=== PATIENT | female | born 1940 | race Caucasian/White ===

== ENCOUNTER 2016-10-17 14:25 | Outpatient (CLI) | payer MEDICARE ==
[2016-10-17 15:01] LABS: CALCIUM 9.4 mg/dL (8.5-10.3); CREATININE 0.8 mg/dL (0.4-1.0); POTASSIUM 4.6 mmol/L (3.5-5.0)
== END 2016-10-17 14:26 | disposition home or self-care (01) ==
LOC: LAB 14:25
PROVIDERS: ATTEND Internal Medicine Cardiovascular Disease
DX: Z01.818 Encounter for other preprocedural examination (principal); I10 Essential (primary) hypertension
CPT/HCPCS: 36415; 80069; 85025

== ENCOUNTER 2017-02-13 08:00 | Outpatient (CLI) | payer MEDICARE ==
[2017-02-13 19:40] LABS: CALCIUM 9.4 mg/dL (8.5-10.3); CREATININE 0.9 mg/dL (0.4-1.0); POTASSIUM 4.1 mmol/L (3.5-5.0)
== END 2017-02-13 08:01 | disposition home or self-care (01) ==
LOC: LAB.N 08:00
PROVIDERS: ATTEND Surgery
DX: Z98.890 Other specified postprocedural states (principal)
CPT/HCPCS: 36415; 80048

== ENCOUNTER 2017-04-25 09:31 | Outpatient (CLI) | payer MEDICARE ==
[2017-04-25 20:17] LABS: CHOL/HDL RATIO 3.2 (<4.4); CHOLESTEROL 139 mg/dL; HDL CHOLESTEROL 44 mg/dL; LDL/HDL RATIO 1.6 (<4.4); TRIGLYCERIDES 113 mg/dL; VLDL CHOLESTEROL 23 mg/dL
[2017-04-25 20:24] LABS: THYROID STIMULATING HORMONE 7.8 uIU/mL (0.34-5.60)
== END 2017-04-25 09:32 | disposition home or self-care (01) ==
LOC: LAB.R 09:31
PROVIDERS: ATTEND Nurse Practitioner Primary Care
DX: E55.9 Vitamin D deficiency, unspecified (principal); D64.9 Anemia, unspecified; E03.9 Hypothyroidism, unspecified; E78.5 Hyperlipidemia, unspecified
CPT/HCPCS: 80061; 82306; 82607; 82728; 84443

== ENCOUNTER 2017-11-21 14:32 | Outpatient (CLI) | payer MEDICARE ==
--- NOTE | 2017-11-21 15:34 | XRAY Report ---
Procedure Date: 11/21/2017 Accession Number: [id number] / [id number] Procedure: XR - Shoulder 2 View LT CPT Code: FULL RESULT: EXAM: Shoulder 2 View LT DATE: 11/21/2017 2:45 PM CLINICAL HISTORY: OSTEOARTHRITIS,SHOULDER LT,IMPINGEMENT SYNDROME OF COMPARISON: None. TECHNIQUE: 2 views. FINDINGS: Bones: Normal. No fracture or bone lesion. Joints: Severe osteoarthritis of the glenohumeral joint. Mild degenerative changes of the acromioclavicular joint. Soft tissues: The visualized hemithorax is unremarkable. No soft tissue swelling. IMPRESSION: Severe glenohumeral osteoarthritis. RADIA
== END 2017-11-21 14:33 | disposition home or self-care (01) ==
LOC: DI 14:32
PROVIDERS: ATTEND Nurse Practitioner Primary Care
DX: M19.012 Primary osteoarthritis, left shoulder (principal)

== ENCOUNTER 2018-09-10 08:00 | Outpatient (CLI) | payer MEDICARE ==
[2018-09-10 19:35] LABS: HGB - HEMOGLOBIN 13.2 g/dL (12.0-16.0); MEAN CORPUSCULAR HEMOGLOBIN 29.3 pg (27.0-31.0); MEAN CORPUSCULAR HGB CONC 32.7 g/dL (32.0-36.0); MEAN CORPUSCULAR VOLUME 89.6 fL (81.0-99.0); RED BLOOD COUNT 4.49 10^6/uL (4.20-5.40); RED CELL DISTRIBUTION WIDTH 15.3 % (12.0-15.0); WHITE BLOOD COUNT 6.3 x10^3/uL (4.8-10.8)
[2018-09-10 19:51] LABS: ALBUMIN 3.5 g/dL (3.2-5.5); ALKALINE PHOSPHATASE 97 IU/L (42-121); ALT ALANINE AMINOTRANSFERASE 22 IU/L (10-60); AST ASPARTATE AMINOTRANSFERASE 19 IU/L (10-42); BILIRUBIN,TOTAL 0.7 mg/dL (0.2-1.0); BUN - BLOOD UREA NITROGEN 21 mg/dL (6-20); CALCIUM 9.2 mg/dL (8.5-10.3); CARBON DIOXIDE - CO2 28 mmol/L (21-32); CHLORIDE 100 mmol/L (101-111); CHOL/HDL RATIO 3.8 (<4.4); CHOLESTEROL 136 mg/dL; CREATININE 0.8 mg/dL (0.4-1.0); GFR - MDRD 69 (>89); GLUCOSE 96 mg/dL (70-100); HDL CHOLESTEROL 36 mg/dL; LDL CHOLESTEROL,CALCULATED 77 mg/dL; LDL/HDL RATIO 2.1 (<4.4); SODIUM 138 mmol/L (135-145); TOTAL PROTEIN 6.9 g/dL (6.7-8.2); VLDL CHOLESTEROL 23 mg/dL
== END 2018-09-10 23:59 | disposition home or self-care (01) ==
LOC: LAB.N 08:00
PROVIDERS: ATTEND Internal Medicine
DX: E78.5 Hyperlipidemia, unspecified (principal); E03.9 Hypothyroidism, unspecified
CPT/HCPCS: 36415; 80053; 80061; 83721; 84443; 85027

== ENCOUNTER 2018-10-24 11:57 | Outpatient (CLI) | payer MEDICARE ==
[2018-10-24] MEDS ORDERED: IOVERSOL 320 50 ML VIAL ONE (13:11)
[2018-10-24] MEDS ORDERED: IOVERSOL 320 100 ML VIAL IVP ONE ×2 (13:11→17:56)
--- NOTE | 2018-10-24 14:41 | CT Report ---
Reason: OTHER MALIGNANT NEUROENDOCRINE TUMORS Procedure Date: 10/24/2018 Accession Number: [id number] / [id number] Procedure: CT - CHEST W CPT Code: FULL RESULT: EXAM: CT CHEST EXAM DATE: 10/24/2018 02:12 PM. CLINICAL HISTORY: Restaging jejunal neuroendocrine cancer. COMPARISONS: CHEST/ABDOMEN/PELVIS W/ 02/22/2018 10:25 AM TECHNIQUE: Routine helical CT imaging was performed through the chest. IV contrast: None. Reconstructions: Coronal and sagittal. In accordance with CT protocol optimization, one or more of the following dose reduction techniques were utilized for this exam: automated exposure control, adjustment of mA and/or KV based on patient size, or use of iterative reconstructive technique. FINDINGS: Lungs/Pleura: Redemonstration of multiple tiny peripheral right lung nodules. All nodules appear to be slightly decreased in size compared to 02/22/2018, including a dominant lateral segment right middle lobe nodule that measures 4 mm maximal diameter (previous 5 mm diameter). No new lesions. Mediastinum: Redemonstration of wide aperture large hiatus hernia that also includes a small portion of nonobstructed mid ascending colon. No adenopathy or masses. The heart and great vessels are normal. Bones: Unremarkable. Visualized Abdomen: Unremarkable. Other: None. IMPRESSION: 1. Interval decrease in size of many of the tiny peripheral primarily right lung pulmonary nodules. No new lesions. 2. Redemonstration of large sliding-type hiatus hernia which also contains a loop of nonobstructed mid ascending colon. 3. Otherwise negative examination. RADIA
--- NOTE | 2018-10-24 14:46 | CT Report ---
Reason: OTHER MALIGNANT NEUROENDOCRINE TUMORS Procedure Date: 10/24/2018 Accession Number: [id number] / [id number] Procedure: CT - Abdomen/Pelvis W CPT Code: FULL RESULT: EXAM: CT ABDOMEN AND PELVIS EXAM DATE: 10/24/2018 02:12 PM. CLINICAL HISTORY: OTHER MALIGNANT NEUROENDOCRINE TUMORS. COMPARISONS: ABDOMEN/PELVIS W/ 02/22/2018 10:25 AM. TECHNIQUE: Routine helical CT imaging was performed through the abdomen and pelvis. IV contrast: . Enteric contrast: No. Reconstructions: Coronal and sagittal. In accordance with CT protocol optimization, one or more of the following dose reduction techniques were utilized for this exam: automated exposure control, adjustment of mA and/or KV based on patient size, or use of iterative reconstructive technique. FINDINGS: Lung Bases: Redemonstration of large sliding-type hiatus hernia which also contains small loop of nonobstructed mid ascending colon Liver: No suspicious lesions. 2 benign-appearing left lobe cysts are again noted, the largest of which measures approximately 4 cm diameter. Gallbladder/Bile Ducts: Unremarkable. Spleen: Normal. Pancreas: Normal. Adrenal Glands: Normal. Kidneys: Normal. No masses or hydronephrosis. Peritoneal Cavity/Bowel: Normal. No free fluid, free air or adenopathy. No masses or acute inflammatory process. The appendix is well visualized and normal. Pelvic Organs: Normal. The bladder and visualized pelvic organs are within normal limits. Vasculature: No aneurysms or other significant abnormality. Bones: No suspicious lesion. Left hip arthroplasty is present and causes beam hardening artifact obscuring the base of pelvis. Other: None. IMPRESSION: No evidence of metastatic disease and no significant change compared to prior examination. RADIA
[2018-10-24] MEDS ORDERED: IOVERSOL 320 50 ML VIAL PO ONE (17:56)
== END 2018-10-24 11:58 | disposition home or self-care (01) ==
LOC: DI 11:57
PROVIDERS: ATTEND Internal Medicine
DX: C7A.8 Other malignant neuroendocrine tumors (principal); R91.8 Other nonspecific abnormal finding of lung field; K44.9 Diaphragmatic hernia without obstruction or gangrene
CPT/HCPCS: 71260; 74177; Q9967

== ENCOUNTER 2018-11-05 08:00 | Outpatient (CLI) | payer MEDICARE ==
[2018-11-05 18:39] LABS: ALBUMIN 3.6 g/dL (3.2-5.5); CALCIUM 9.3 mg/dL (8.5-10.3); CREATININE 0.9 mg/dL (0.4-1.0); PHOSPHORUS 4.3 mg/dL (2.5-4.6)
== END 2018-11-05 08:01 | disposition home or self-care (01) ==
LOC: LAB.N 08:00
PROVIDERS: ATTEND Internal Medicine Cardiovascular Disease
DX: E78.5 Hyperlipidemia, unspecified (principal); R06.02 Shortness of breath; I10 Essential (primary) hypertension
CPT/HCPCS: 36415; 80069

== ENCOUNTER 2018-12-27 07:38 | Outpatient (CLI) | payer MEDICARE ==
--- NOTE | 2018-12-30 11:03 | Mammography Report ---
Reason: SCREENING MAMMOGRAM Procedure Date: 12/27/2018 Accession Number: [id number] / [id number] Procedure: PATT - Screening Mammo w/Gaston CPT Code: FULL RESULT: EXAM: Screening Mammo w/Gaston DATE: 12/27/2018 8:15 AM CLINICAL HISTORY: Routine screening. No reported personal history or family history of breast cancer. Personal history of colon cancer. TECHNIQUE: (B) - Bilateral CC and MLO views were obtained. COMPARISON: 02/21/2016 PARENCHYMAL PATTERN: (A) - The breasts demonstrate scattered fibroglandular densities bilaterally. FINDINGS: Bilateral breasts: There are no suspicious masses, calcifications, or areas of distortion. IMPRESSION: Negative examination. BI-RADS category 1. RECOMMENDATION: (ANNUAL) - Recommend routine annual screening mammography. BI-RADS CATEGORY: (1) - Negative. STANDARD QUALIFYING STATEMENTS: 1. This examination was not reviewed with the aid of Computer-Aided Detection (CAD). 2. A negative or benign imaging report should not preclude biopsy if clinically suspicious findings are present. 3. Dense breasts may obscure an underlying neoplasm. 4. This examination was reviewed with the aid of 3D breast imaging (tomosynthesis).
== END 2018-12-27 07:39 | disposition home or self-care (01) ==
LOC: DI 07:38
PROVIDERS: ATTEND Nurse Practitioner
DX: Z12.31 Encounter for screening mammogram for malignant neoplasm of breast (principal); Z85.038 Personal history of other malignant neoplasm of large intestine
CPT/HCPCS: 77063; 77067

== ENCOUNTER 2018-12-27 07:38 | Outpatient (CLI) | payer MEDICARE ==
--- NOTE | 2018-12-30 12:25 | DEXA Report ---
Reason: HX OF NORMAL MEOPAUSE Procedure Date: 12/27/2018 Accession Number: [id number] / [id number] Procedure: DEX - Dexa Spine and/or Hip CPT Code: FULL RESULT: EXAM: Dexa Spine and/or Hip DATE: 12/27/2018 8:45 AM CLINICAL HISTORY: HX OF NORMAL MENOPAUSE TECHNIQUE: Dual energy x-ray absorptiometry (DXA) was performed on a Booster Pack System. Regions measured are the AP Spine, femoral neck, and if needed forearm. COMPARISON: 02/21/2016 In accordance with the International Society for Clinical Densitometry (ISCD) guidelines, data from previous exams may be reanalyzed using current recommendations and techniques. This is done to allow a more accurate basis for comparison with the current study. FINDINGS: The data for the lumbar spine is as follows: BMD (g/cm/cm) T-SCORE Z-SCORE REGION L1 0.850 -2.3 -1.5 L2 1.033 -1.4 -0.6 L3 1.142 -0.5 0.3 L4 0.960 -2.0 -1.2 TOTAL 1.001 -1.5 -0.7 NOTE: All evaluable vertebrae are used for classification The data for the hip is as follows: BMD (g/cm/cm) T-SCORE Z-SCORE REGION Neck 0.954 -0.6 0.9 TOTAL 0.873 -1.1 0.2 NOTE: The femoral neck or total proximal femur, whichever is lowest, is used for classification. SCAN DATE AGE BMD CHANGE VS CHANGE VS PREVIOUS PREVIOUS % 11/27[birth year]2018 [age] 1[age]001 0.022 2.2 02/21/2016 [age] 0[age]979 * Denotes significant change at the 95% confidence level. Denotes dissimilar scan types or analysis methods. DXA RESULTS SUMMARY: Hip SCAN DATE AGE BMD CHANGE VS CHANGE VS PREVIOUS PREVIOUS % [birth year][age][birth year]2018 [age] 0.873 0.038* 4.6* 02/21/2016 [age] 0.835 * Denotes significant change at the 95% confidence level. Denotes dissimilar scan types or analysis methods. IMPRESSION: THE WHO CLASSIFICATION BASED ON THE INTERNATIONAL REFERENCE STANDARD IS OSTEOPENIA. THE FRACTURE RISK IS INCREASED. RECOMMENDATION: Patients with diagnosis of osteoporosis or osteopenia should have regular bone mineral density assessment. For those eligible for Medicare, routine testing is allowed once every 2 years. Testing frequency can be increased for patients who have rapidly progressing disease or for those who are receiving medical therapy to restore bone mass. COMMENT: World Health Organization (WHO) definitions for osteoporosis and osteopenia: NORMAL BMD: T-score at -1.0 or higher, fracture risk is low OSTEOPENIA BMD: T-score between -1.0 and -2.5, fracture risk is increased. OSTEOPOROSIS BMD: T-score at -2.5 or lower, fracture risk is high. National Osteoporosis Foundation recommends: 1. Obtain adequate dietary calcium (at least 1200 mg per day) and vitamin D (400-800 international units per day). 2. Participate, as appropriate, in regular weightbearing and muscle-strengthening exercise. 3. Avoid tobacco use and reduce alcohol and caffeine intake. 4. For more detailed information see the website at www.NOF.org.
== END 2018-12-27 07:39 | disposition home or self-care (01) ==
LOC: DI 07:38
PROVIDERS: ATTEND Nurse Practitioner
DX: M85.89 Other specified disorders of bone density and structure, multiple sites (principal); Z78.0 Asymptomatic menopausal state
CPT/HCPCS: 77080

== ENCOUNTER 2019-09-22 10:49 | Outpatient (CLI) | payer MEDICARE ==
[2019-09-22 13:26] LABS: BASOPHILS # (AUTO) 0.1 10^3/uL (0.0-0.1); BASOPHILS % (AUTO) 0.9 %; EOSINOPHILS % (AUTO) 0.6 %; HGB - HEMOGLOBIN 13.4 g/dL (12.0-16.0); LYMPHOCYTES # (AUTO) 1.7 10^3/uL (1.5-3.5); LYMPHOCYTES % (AUTO) 23.9 %; MEAN CORPUSCULAR HEMOGLOBIN 31.1 pg (27.0-31.0); MEAN CORPUSCULAR HGB CONC 31.9 g/dL (32.0-36.0); MEAN CORPUSCULAR VOLUME 97.4 fL (81.0-99.0); MEAN PLATELET VOLUME 11.1 fL (7.9-10.8); MONOCYTES # (AUTO) 0.6 10^3/uL (0.0-1.0); MONOCYTES % (AUTO) 8.4 %; NEUTROPHILS # (AUTO) 4.7 10^3/uL (1.5-6.6); NEUTROPHILS % (AUTO) 66.1 %; PLT - PLATELET COUNT 255 10^3/uL (130-450); RED BLOOD COUNT 4.31 10^6/uL (4.20-5.40); RED CELL DISTRIBUTION WIDTH 14.6 % (12.0-15.0)
[2019-09-22 13:41] LABS: ALBUMIN 3.7 g/dL (3.2-5.5); BUN - BLOOD UREA NITROGEN 16 mg/dL (6-20); CARBON DIOXIDE - CO2 26 mmol/L (21-32); CHLORIDE 101 mmol/L (101-111); CHOL/HDL RATIO 3.6 (<4.4); CHOLESTEROL 122 mg/dL; GLUCOSE 117 mg/dL (70-100); HDL CHOLESTEROL 34 mg/dL; LDL CHOLESTEROL,CALCULATED 63 mg/dL; LDL/HDL RATIO 1.9 (<4.4); PHOSPHORUS 3.6 mg/dL (2.5-4.6); SODIUM 136 mmol/L (135-145); VLDL CHOLESTEROL 25 mg/dL
== END 2019-09-22 23:59 | disposition home or self-care (01) ==
LOC: LAB.WCP 10:49
PROVIDERS: ATTEND Internal Medicine Cardiovascular Disease
DX: E78.5 Hyperlipidemia, unspecified (principal); R06.02 Shortness of breath; I10 Essential (primary) hypertension
CPT/HCPCS: 36415; 80061; 80069; 83721; 85025